=== PATIENT | male | born 1975 | race Hispanic/Latino ===

== ENCOUNTER → 2022-10-15 | Day surgery (SDC) | payer BC ==
[~2022-10-15] MED LIST: ATORVASTATIN CA10 MG PO; LIDOCAINE HCL 2% LOCAL INJ 5 ML SDV VIAL INJ ONE; MIDAZOLAM HCL 2 MG/2 ML VIAL ONE; PROPOFOL IV EMULSION 10 MG/ML 20 ML VIAL ONE
[2022-10-15 10:15] VITALS: BP 112/80
== END | disposition home or self-care (01) ==
LOC: OR 08:11
PROVIDERS: ATTEND Internal Medicine Gastroenterology
DX: Z12.11 Encounter for screening for malignant neoplasm of colon (principal); K62.5 Hemorrhage of anus and rectum; K64.8 Other hemorrhoids; K59.00 Constipation, unspecified; R03.0 Elevated blood-pressure reading, without diagnosis of hypertension; Z01.810 Encounter for preprocedural cardiovascular examination; Z79.899 Other long term (current) drug therapy
CPT/HCPCS: 45378; 93005; J2001; J2250; J2704